=== PATIENT | male | born 1950 | race African-American/Black ===

== ENCOUNTER 2019-05-13 09:50 | Emergency (ER) | payer MEDICARE, MEDICAID ==
[~2019-05-13] VITALS: Ht 177.8 cm; Wt 66.0 kg
[~2019-05-13 09:50] MED LIST: AMLO5TAB4 PO; ASPI-1497 PO; CHLO25TA27 PO; CYCL10TA7 PO; LISI40TA4 PO; TAMS-11
[2019-05-13] MEDS ORDERED: NALOXONE HCL 1 MG/ML 2ML VIAL IV ONE (10:00)
[2019-05-13] MEDS ORDERED: AMLODIPINE 5MG TABLET PO ONE (10:15)
[2019-05-13] MEDS ORDERED: LISINOPRIL 40MG TABLET PO ONE (10:15)
[2019-05-13] MEDS ORDERED: LABETALOL 5MG/ML SYR 20 MG/4 ML SYRINGE IV ONE (10:15)
[2019-05-13 10:38] LABS: BASOPHILS % 1.2 % (0.0-2.0); EOSINOPHILS % 1.1 % (0.0-5.0); HEMATOCRIT. 47.8 % (42.0-52.0); HEMOGLOBIN. 16.5 g/dL (14.0-18.0); LYMPHOCYTES % 45.9 % (20.0-50.0); MEAN CORPUSCULAR HEMOGLOBIN 34.3 pg (28.0-32.0); MEAN CORPUSCULAR VOLUME 99.6 fL (80.0-94.0); MEAN PLATELET VOLUME 7.1 fl (7.4-10.4); MONOCYTES % 12.2 % (2.0-8.0); NEUTROPHILS % 39.6 % (40.0-76.0); PLATELET 273 x1000/uL (130-400); RED CELL DISTRIBUTION WIDTH 12.9 % (11.6-14.6)
[2019-05-13 10:43] LABS: CHLORIDE 105 mEq/L (98-107)
[2019-05-13 10:48] LABS: ETHANOL BLOOD 23 mg/dL
[2019-05-13 13:25] VITALS: BP 151/70
== END 2019-05-13 13:27 | disposition home or self-care (01) ==
LOC: ER 09:50 → CANBEDREQ 19:57
DX: I16.0 Hypertensive urgency (principal); I10 Essential (primary) hypertension; F17.290 Nicotine dependence, other tobacco product, uncomplicated; F12.10 Cannabis abuse, uncomplicated; Z79.82 Long term (current) use of aspirin; Z79.899 Other long term (current) drug therapy
CPT/HCPCS: 36415; 70450; 71045; 80053; 80320; 83880; 84484; 85025; 93005; 96374; 99285; J3490; G0480